=== PATIENT | male | born 2000 | race Caucasian/White ===

== ENCOUNTER 2018-04-24 02:26 | Emergency (ER) | payer BC ==
[~2018-04-24] VITALS: Ht 180.3 cm; Wt 81.7 kg
[2018-04-24 02:35] VITALS: BP 119/83
== END 2018-04-24 03:03 | disposition home or self-care (01) ==
LOC: ER 02:26
DX: L55.0 Sunburn of first degree (principal); L53.9 Erythematous condition, unspecified